=== PATIENT | female | born 1940 | race Native Hawaiian/Other Pacific Islander ===

== ENCOUNTER 2017-02-10 15:08 | Observation (INO) | payer OTHER ==
[~2017-02-10] VITALS: Ht 154.9 cm; Wt 85.0 kg
[~2017-02-10 15:08] MED LIST: AMLO5TAB PO; ARICEPT ODT5 MG PO; CETI10TA PO; CIMETIDINE400 MG PO; DICL1GEL2 TOP; FLUT0.05 NAS; GLIP10TA55 PO; HYDR10TA47 PO; LISI5TAB10 PO; METHIMAZOLE5 MG PO; METO100T37 PO; MIRALAX3350 N1 PO; NITRO-DUR0.4 MG/HR TD; PROAIR HFA IN; TRAM50TA PO; TRAMADL/APAP1 TAB PO; TRAVATAN Z0.004 % OP; XARELTO15 MG PO
[2017-02-10 17:33] LABS: PLATELET COUNT 196 K/uL (152-353)
[2017-02-10 17:42] LABS: POTASSIUM 3.6 mmol/L (3.6-5.2); SODIUM 136 mmol/L (136-145)
[2017-02-10 17:55] LABS: PARTIAL THROMBOPLASTIN TIME 22.8 SECONDS (24.5-33.6)
[2017-02-10 18:41] VITALS: BP 176/83; TEMP 98.4; Ht 154.9 cm; Wt 85.0 kg
[2017-02-10 20:00] VITALS: BP 143/74; TEMP 98.5
[2017-02-11 00:01] VITALS: BP 141/70; TEMP 99.5
[2017-02-11 03:54] LABS: PLATELET COUNT 216 K/uL (152-353)
[2017-02-11 04:00] VITALS: BP 132/52; TEMP 99.1
[2017-02-11 04:07] LABS: POTASSIUM 3.5 mmol/L (3.6-5.2)
[2017-02-11 08:00] VITALS: BP 128/68; TEMP 98.3
== END 2017-02-11 12:48 | disposition home or self-care (01) ==
LOC: MED/SURG 15:08
PROVIDERS: Family Medicine
DX: R07.89 Other chest pain (principal); I48.91 Unspecified atrial fibrillation; R00.2 Palpitations; R94.31 Abnormal electrocardiogram [ECG] [EKG]
CPT/HCPCS: 36415; 80053; 82550; 82948; 83735; 83880; 84443; 84484; 85027; 85610; 85730; 93005; 96372; 99220; G0378; G0379; J1650

== ENCOUNTER 2017-06-13 18:00 | Emergency (ER) | payer OTHER ==
[~2017-06-13] VITALS: Ht 154.9 cm; Wt 86.2 kg
[2017-06-13 19:04] LABS: PLATELET COUNT 209 K/uL (152-353)
[2017-06-13 20:35] VITALS: BP 164/65; TEMP 98.7
== END 2017-06-13 20:38 | disposition home or self-care (01) ==
LOC: ED 18:00
DX: L03.213 Periorbital cellulitis (principal); Z97.0 Presence of artificial eye
CPT/HCPCS: 36415; 85027; 96374; 99284; J1885

== ENCOUNTER 2017-09-06 12:09 | Inpatient (IN) | payer OTHER ==
[~2017-09-06] VITALS: Ht 152.4 cm; Wt 87.1 kg
[2017-09-06 13:45] VITALS: BP 187/92; TEMP 98.7; Ht 152.4 cm; Wt 87.1 kg
[2017-09-06 15:57] LABS: PLATELET COUNT 190 K/uL (152-353)
[2017-09-06 16:00] VITALS: BP 191/101; TEMP 98.6
[2017-09-06] MEDS ORDERED: COMBIGAN0.2 MG/0.5 OP (16:13)
[2017-09-06 17:33] VITALS: BP 109/79
[2017-09-06] MEDS ORDERED: LEVO-T50 MCG PO (17:49)
[2017-09-06 18:16] LABS: POTASSIUM 2.8 mmol/L (3.6-5.2)
[2017-09-06 20:00] VITALS: TEMP 98.2
[2017-09-07] VITALS: BP 162/85; TEMP 98.2
[2017-09-07 04:00] VITALS: BP 117/69; TEMP 99.1
[2017-09-07 06:09] LABS: PLATELET COUNT 205 K/uL (152-353)
[2017-09-07 06:24] LABS: POTASSIUM 2.7 mmol/L (3.6-5.2)
[2017-09-07 08:00] VITALS: BP 155/65; TEMP 98
[2017-09-07 11:50] VITALS: BP 124/53; TEMP 98
[2017-09-07 16:00] VITALS: BP 128/54; TEMP 98
[2017-09-07 20:00] VITALS: BP 152/70; TEMP 98.9
[2017-09-08] VITALS: BP 156/55; TEMP 99
[2017-09-08 04:00] VITALS: BP 170/64; TEMP 98.7
[2017-09-08 05:37] LABS: PLATELET COUNT 191 K/uL (152-353)
[2017-09-08 05:48] LABS: POTASSIUM 2.6 mmol/L (3.6-5.2)
[2017-09-08 08:00] VITALS: BP 162/72; TEMP 98.6
[2017-09-08 12:00] VITALS: BP 113/68; TEMP 98.8
[2017-09-08 16:00] VITALS: BP 177/88; TEMP 98.8
[2017-09-08 20:00] VITALS: BP 138/50; TEMP 98.6
[2017-09-09] VITALS: BP 133/64; TEMP 98.3
[2017-09-09 04:00] VITALS: BP 167/76; TEMP 97.7
[2017-09-09 07:35] LABS: PLATELET COUNT 181 K/uL (152-353)
[2017-09-09 08:02] LABS: POTASSIUM 2.9 mmol/L (3.6-5.2)
[2017-09-09 08:10] VITALS: BP 162/71; TEMP 98.2
[2017-09-09 12:08] VITALS: BP 165/62; TEMP 97.8
[2017-09-09 15:05] VITALS: BP 167/61; TEMP 97.6
[2017-09-09 20:00] VITALS: BP 165/76; TEMP 98.4
[2017-09-10] VITALS: BP 151/62; TEMP 98.5
[2017-09-10 04:02] VITALS: BP 139/52; TEMP 98.7
[2017-09-10 08:00] VITALS: BP 163/78; TEMP 98
[2017-09-10 08:07] LABS: PLATELET COUNT 208 K/uL (152-353)
[2017-09-10 12:00] VITALS: BP 154/73; TEMP 97.8
== END 2017-09-10 14:45 | disposition home or self-care (01) | DRG 603 ==
LOC: MED/SURG 12:09
PROVIDERS: ADMIT Family Medicine
PROC: 0H91XZZ Drainage of Face Skin, External Approach (ICD-10-PCS; principal; 2017-09-07)
DX: A46 Erysipelas (principal); I10 Essential (primary) hypertension; E11.9 Type 2 diabetes mellitus without complications; R11.2 Nausea with vomiting, unspecified; B95.61 Methicillin susceptible Staphylococcus aureus infection as the cause of diseases classified elsewhere
CPT/HCPCS: 36415; 80053; 80202; 81000; 82550; 82948; 83735; 83880; 84100; 84132; 85027; 87040; 87070; 87077; 87185; 87186; 87205; 93005; J1170; J2405; J3475; J3480; Q9963

== ENCOUNTER 2018-02-28 15:46 | Outpatient (CLI) | payer OTHER ==
[~2018-02-28 15:46] MED LIST changes: +COMBIGAN0.2 MG/0.5 OP; +LEVO-T50 MCG PO
== END 2018-02-28 22:27 | disposition home or self-care (01) ==
LOC: RAD 15:46
DX: J44.9 Chronic obstructive pulmonary disease, unspecified (principal)

== ENCOUNTER 2018-04-07 10:43 | Outpatient (CLI) | payer OTHER | END 2018-04-07 20:18 | disposition home or self-care (01) | LOC: LAB 10:43 | DX: A46 Erysipelas (principal) | CPT/HCPCS: 87070; 87077; 87185; 87186; 87205 ==

== ENCOUNTER 2018-04-24 09:10 | Outpatient (CLI) | payer OTHER | END 2018-04-24 19:20 | disposition home or self-care (01) | LOC: RESP 09:10 | DX: R06.02 Shortness of breath (principal) ==

== ENCOUNTER 2018-07-16 13:46 | Emergency (ER) | payer OTHER ==
[~2018-07-16] VITALS: Ht 154.9 cm; Wt 85.3 kg
[2018-07-16 13:50] VITALS: TEMP 98
[2018-07-16 16:03] VITALS: BP 159/72
== END 2018-07-16 16:12 | disposition home or self-care (01) ==
LOC: ED 13:46
DX: M79.672 Pain in left foot (principal)
CPT/HCPCS: 92977; 99283; J1020; J1885

== ENCOUNTER 2018-07-22 15:01 | Emergency (ER) | payer OTHER ==
[~2018-07-22] VITALS: Ht 154.9 cm; Wt 85.3 kg
[2018-07-22 18:06] LABS: PLATELET COUNT 195 K/uL (152-353)
[2018-07-22 18:26] LABS: POTASSIUM 3.8 mmol/L (3.6-5.2)
[2018-07-22 21:09] VITALS: BP 155/83; TEMP 99
== END 2018-07-22 21:15 | disposition home or self-care (01) ==
LOC: ED 15:01
PROVIDERS: Emergency Medicine
DX: L03.213 Periorbital cellulitis (principal)
CPT/HCPCS: 36415; 80053; 85027; 87040; 96365; 99284; J0696; Q9963

== ENCOUNTER 2018-08-02 07:53 | Emergency (ER) | payer OTHER ==
[~2018-08-02] VITALS: Ht 154.9 cm; Wt 81.6 kg
[2018-08-02 08:08] VITALS: TEMP 98.2
[2018-08-02 10:15] VITALS: BP 144/88
== END 2018-08-02 10:15 | disposition home or self-care (01) ==
LOC: ED 07:53
DX: S09.8XXA Other specified injuries of head, initial encounter (principal); Z87.81 Personal history of (healed) traumatic fracture; V89.0XXA Person injured in unspecified motor-vehicle accident, nontraffic, initial encounter; Y92.89 Other specified places as the place of occurrence of the external cause
CPT/HCPCS: 99283

== ENCOUNTER 2018-08-13 07:01 | Outpatient (CLI) | payer OTHER ==
[2018-08-13] MEDS ORDERED: HYDROCODONE BIT1 TAB PO (11:09)
[2018-08-13] MEDS ORDERED: ONDA2INJ2 IV (11:10)
[2018-08-13] MEDS ORDERED: HYDR10TA10 PO (11:11)
[2018-08-13] MEDS ORDERED: LISI10TA11 PO (11:12)
[2018-08-13] MEDS ORDERED: ASA LOW DOSE81 MG PO (11:12)
[2018-08-13] MEDS ORDERED: GLIP10TA55 PO (11:13)
[2018-08-13] MEDS ORDERED: AMLODIPINE BESYLATE PO (11:14)
[2018-08-13] MEDS ORDERED: CLINDAMYCIN HY300 MG PO (11:14)
[2018-08-13] MEDS ORDERED: METH5TAB6 PO (11:15)
[2018-08-13] MEDS ORDERED: XARELTO15 MG PO (11:16)
[2018-08-13] MEDS ORDERED: UNITH DIRECT50 MCG PO (11:17)
[2018-08-13] MEDS ORDERED: NITR0.4S2 SL (17:56)
[2018-08-13] MEDS ORDERED: DONE5TAB PO (18:00)
== END 2018-08-13 07:05 | disposition short-term general hospital (02) ==
LOC: AMB 07:01
DX: R06.02 Shortness of breath (principal); R07.89 Other chest pain
CPT/HCPCS: A0425; A0427

== ENCOUNTER 2018-08-13 07:09 | Inpatient (IN) | payer OTHER ==
[2018-08-13] VITALS (11 sets, daily range): BP systolic 108–157; BP diastolic 82–110; TEMP 97.4–98.1; Ht 154.9 cm; Wt 85.8 kg
[~2018-08-13] VITALS: Ht 154.9 cm; Wt 85.8 kg
[2018-08-13 08:24] LABS: PLATELET COUNT 179 K/uL (152-353)
[2018-08-13 08:37] LABS: POTASSIUM 4.5 mmol/L (3.6-5.2); SODIUM 136 mmol/L (136-145)
[2018-08-13] MEDS ORDERED: HYDROCODONE BIT1 TAB PO (11:09)
[2018-08-13] MEDS ORDERED: ONDA2INJ2 IV (11:10)
[2018-08-13] MEDS ORDERED: HYDR10TA10 PO (11:11)
[2018-08-13] MEDS ORDERED: ASA LOW DOSE81 MG PO (11:12)
[2018-08-13] MEDS ORDERED: LISI10TA11 PO (11:12)
[2018-08-13] MEDS ORDERED: GLIP10TA55 PO (11:13)
[2018-08-13] MEDS ORDERED: AMLODIPINE BESYLATE PO (11:14)
[2018-08-13] MEDS ORDERED: CLINDAMYCIN HY300 MG PO (11:14)
[2018-08-13] MEDS ORDERED: METH5TAB6 PO (11:15)
[2018-08-13] MEDS ORDERED: XARELTO15 MG PO (11:16)
[2018-08-13] MEDS ORDERED: UNITH DIRECT50 MCG PO (11:17)
[2018-08-13] MEDS ORDERED: NITR0.4S2 SL (17:56)
[2018-08-13] MEDS ORDERED: DONE5TAB PO (18:00)
[2018-08-14] VITALS: BP 116/82; TEMP 97.8
[2018-08-14 03:58] VITALS: BP 120/80; TEMP 98.1
[2018-08-14 08:00] VITALS: BP 151/85; TEMP 97.3
[2018-08-14 08:31] LABS: POTASSIUM 3.8 mmol/L (3.6-5.2)
[2018-08-14 09:53] LABS: PLATELET COUNT 178 K/uL (152-353)
[2018-08-14 12:00] VITALS: BP 137/91; TEMP 97.6
[2018-08-14 16:00] VITALS: BP 119/76; TEMP 97.8
[2018-08-14 20:08] VITALS: BP 112/73; TEMP 98.8
[2018-08-15 00:03] VITALS: BP 121/69; TEMP 97.8
[2018-08-15 04:00] VITALS: BP 152/81; TEMP 97.8
[2018-08-15 05:46] LABS: PLATELET COUNT 169 K/uL (152-353)
[2018-08-15 07:02] LABS: POTASSIUM 3.4 mmol/L (3.6-5.2)
[2018-08-15 08:00] VITALS: BP 135/77; TEMP 97.9
[2018-08-15 12:00] VITALS: BP 135/62; TEMP 98.2
[2018-08-15 16:00] VITALS: BP 142/66; TEMP 97.8
[2018-08-15 19:36] VITALS: BP 131/71; TEMP 98.7
[2018-08-16 00:18] VITALS: BP 122/71; TEMP 98.8
[2018-08-16 04:00] VITALS: BP 146/66; TEMP 98.8
[2018-08-16 05:56] LABS: PLATELET COUNT 178 K/uL (152-353)
[2018-08-16 06:20] LABS: POTASSIUM 3.6 mmol/L (3.6-5.2)
[2018-08-16 08:00] VITALS: BP 146/85; TEMP 97.5
[2018-08-16] MEDS ORDERED: CARDIZEM LA360 M1 PO (09:29)
[2018-08-16] MEDS ORDERED: ISOS30TA17 PO (09:29)
== END 2018-08-16 10:00 | disposition home or self-care (01) | DRG 310 ==
LOC: ED 07:09 → MED/SURG 11:50
PROVIDERS: Family Medicine; ADMIT Family Medicine
DX: I48.0 Paroxysmal atrial fibrillation (principal); R07.89 Other chest pain; I45.2 Bifascicular block; I50.9 Heart failure, unspecified; E11.9 Type 2 diabetes mellitus without complications; G89.29 Other chronic pain; F03.90 Unspecified dementia, unspecified severity, without behavioral disturbance, psychotic disturbance, mood disturbance, and anxiety; I11.0 Hypertensive heart disease with heart failure; Z79.01 Long term (current) use of anticoagulants; E78.49 Other hyperlipidemia
CPT/HCPCS: 36415; 80048; 80053; 80162; 81000; 82550; 82553; 83735; 83880; 84100; 84484; 85027; 85379; 93005; 93306; 94640; 94664; 94760; 99283; J1160; J1650; J1815; J1940; J3490

== ENCOUNTER 2018-09-12 13:39 | Outpatient (CLI) | payer OTHER ==
[~2018-09-12 13:39] MED LIST changes: +AMLODIPINE BESYLATE PO; +ASA LOW DOSE81 MG PO; +CARDIZEM LA360 M1 PO; +CLINDAMYCIN HY300 MG PO; +DONE5TAB PO; +HYDR10TA10 PO; +HYDROCODONE BIT1 TAB PO; +ISOS30TA17 PO; +LISI10TA11 PO; +METH5TAB6 PO; +NITR0.4S2 SL; +ONDA2INJ2 IV; +UNITH DIRECT50 MCG PO
[2018-09-12 14:32] LABS: POTASSIUM 3.5 mmol/L (3.6-5.2); SODIUM 139 mmol/L (136-145)
[2018-09-12 14:34] LABS: PLATELET COUNT 192 K/uL (152-353)
== END 2018-09-12 21:10 | disposition home or self-care (01) ==
LOC: LABW 13:39
PROVIDERS: Family Medicine
DX: R06.02 Shortness of breath (principal)
CPT/HCPCS: 36415; 80053; 82550; 83880; 84484; 85027

== ENCOUNTER 2018-09-27 12:29 | Inpatient (IN) | payer OTHER ==
[~2018-09-27] VITALS: Ht 154.9 cm; Wt 89.0 kg
[2018-09-27 12:29] VITALS: BP 156/126; TEMP 98
[2018-09-27 13:20] LABS: POTASSIUM 3.7 mmol/L (3.6-5.2); SODIUM 137 mmol/L (136-145)
[2018-09-27 13:47] LABS: PLATELET COUNT 171 K/uL (152-353)
[2018-09-27 18:22] VITALS: BP 150/89; TEMP 97.5; Ht 154.9 cm; Wt 89.0 kg
[2018-09-27 20:00] VITALS: BP 150/69; TEMP 97.6
[2018-09-27 23:00] VITALS: BP 148/75
[2018-09-28] VITALS (25 sets, daily range): BP systolic 110–145; BP diastolic 47–84; TEMP 97.8–98.6
[2018-09-28 05:15] LABS: PLATELET COUNT 157 K/uL (152-353)
[2018-09-28] MEDS ORDERED: DIGOXIN125 MCG PO (09:17)
[2018-09-28] MEDS ORDERED: ONDA4TAB3 PO (09:18)
[2018-09-28] MEDS ORDERED: TRIAMCIN MT (09:19)
[2018-09-28] MEDS ORDERED: ORA MT (09:19)
[2018-09-28] MEDS ORDERED: HYDR10TA10 PO (09:20)
[2018-09-28] MEDS ORDERED: GLIP10TA55 PO (09:21)
[2018-09-28] MEDS ORDERED: TRAVATAN Z0.004 % OTIC (09:22)
[2018-09-28] MEDS ORDERED: COMBIGAN0.2 MG/0.5 OTIC (09:22)
[2018-09-28] MEDS ORDERED: AMLODIPINE BESYLATE PO (09:23)
[2018-09-29] VITALS (14 sets, daily range): BP systolic 107–130; BP diastolic 56–82; TEMP 97.3–98
[2018-09-29 06:25] LABS: PLATELET COUNT 158 K/uL (152-353)
[2018-09-29 06:46] LABS: POTASSIUM 3.3 mmol/L (3.6-5.2)
[2018-09-30] VITALS: BP 109/58; TEMP 97.6
[2018-09-30 04:00] VITALS: BP 113/70; TEMP 97.7
[2018-09-30 05:57] LABS: PLATELET COUNT 157 K/uL (152-353)
[2018-09-30 06:10] LABS: POTASSIUM 3.4 mmol/L (3.6-5.2)
[2018-09-30 08:30] VITALS: BP 132/78; TEMP 98.1
[2018-09-30 12:00] VITALS: BP 129/74; TEMP 97.7
[2018-09-30 16:00] VITALS: BP 115/68; TEMP 97.6
[2018-09-30 20:00] VITALS: BP 124/69; TEMP 98
[2018-10-01] VITALS: BP 121/66; TEMP 98.3
[2018-10-01 04:00] VITALS: BP 126/61; TEMP 98.4
[2018-10-01 05:19] LABS: PLATELET COUNT 170 K/uL (152-353)
[2018-10-01 05:43] LABS: POTASSIUM 3.6 mmol/L (3.6-5.2)
[2018-10-01 08:00] VITALS: BP 153/87; TEMP 97.6
[2018-10-01 12:00] VITALS: BP 135/59; TEMP 98
[2018-10-01 16:00] VITALS: BP 115/69; TEMP 97.7
[2018-10-01 19:59] VITALS: BP 152/88; TEMP 97.6
[2018-10-02] VITALS: BP 105/58; TEMP 98.1
[2018-10-02 04:00] VITALS: BP 115/62; TEMP 98
[2018-10-02 05:47] LABS: PLATELET COUNT 164 K/uL (152-353)
[2018-10-02 06:19] LABS: POTASSIUM 3.7 mmol/L (3.6-5.2)
[2018-10-02 08:00] VITALS: BP 109/62; TEMP 97.4
[2018-10-02] MEDS ORDERED: 904272561 PO (09:36)
[2018-10-02] MEDS ORDERED: FURO20TA67 PO (09:38)
== END 2018-10-02 10:50 | disposition home or self-care (01) | DRG 309 ==
LOC: ED 12:29 → ICU 16:40 → MED/SURG 16:40 → ICU 17:41 → UNDODEPER 09-28 18:19 → MED/SURG 09-29 11:10
PROVIDERS: ADMIT Emergency Medicine
DX: I48.0 Paroxysmal atrial fibrillation (principal); L03.213 Periorbital cellulitis; I50.9 Heart failure, unspecified; I51.7 Cardiomegaly; R53.1 Weakness; E78.49 Other hyperlipidemia; I10 Essential (primary) hypertension; E11.9 Type 2 diabetes mellitus without complications; E87.6 Hypokalemia; F03.90 Unspecified dementia, unspecified severity, without behavioral disturbance, psychotic disturbance, mood disturbance, and anxiety; E03.8 Other specified hypothyroidism
CPT/HCPCS: 36415; 80053; 82550; 82553; 83735; 83880; 84439; 84443; 84481; 84484; 85027; 93005; 94760; 96374; 99284; J1940; J2405; J3475; J3490

== ENCOUNTER 2018-10-26 16:17 | Emergency (ER) | payer OTHER ==
[~2018-10-26] VITALS: Ht 154.9 cm; Wt 88.9 kg
[~2018-10-26 16:17] MED LIST changes: +904272561 PO; +COMBIGAN0.2 MG/0.5 OTIC; +DIGOXIN125 MCG PO; +FURO20TA67 PO; +ONDA4TAB3 PO; +ORA MT; +TRAVATAN Z0.004 % OTIC; +TRIAMCIN MT
[2018-10-26 18:30] LABS: PLATELET COUNT 175 K/uL (152-353)
[2018-10-26 18:36] LABS: POTASSIUM 3.4 mmol/L (3.6-5.2); SODIUM 138 mmol/L (136-145)
[2018-10-26 20:17] VITALS: BP 189/91; TEMP 98.5
== END 2018-10-26 20:29 | disposition home or self-care (01) ==
LOC: ED 16:17
PROVIDERS: Emergency Medicine
DX: I48.91 Unspecified atrial fibrillation (principal); R06.02 Shortness of breath
CPT/HCPCS: 36415; 80053; 80162; 82550; 82553; 83735; 83880; 84484; 85027; 93005; 96360; 99284

== ENCOUNTER 2018-12-09 19:56 | Emergency (ER) | payer OTHER ==
[~2018-12-09] VITALS: Ht 154.9 cm; Wt 88.9 kg
[2018-12-09 20:05] VITALS: TEMP 98.1
[2018-12-09 20:48] LABS: PLATELET COUNT 167 K/uL (152-353)
[2018-12-09 21:03] LABS: POTASSIUM 3.3 mmol/L (3.6-5.2); SODIUM 139 mmol/L (136-145)
[2018-12-09 21:52] VITALS: BP 163/97
== END 2018-12-09 21:55 | disposition home or self-care (01) ==
LOC: ED 19:56
PROVIDERS: Family Medicine
DX: R06.02 Shortness of breath (principal); R54 Age-related physical debility
CPT/HCPCS: 36415; 80053; 82550; 82553; 83880; 84443; 84484; 85027; 85379; 93005; 99283

== ENCOUNTER 2019-01-30 16:40 | Emergency (ER) | payer OTHER ==
[~2019-01-30] VITALS: Ht 154.9 cm; Wt 81.6 kg
[2019-01-30 17:30] LABS: PLATELET COUNT 145 K/uL (152-353)
[2019-01-30 17:39] LABS: POTASSIUM 3.4 mmol/L (3.6-5.2); SODIUM 139 mmol/L (136-145)
[2019-01-30 17:42] LABS: PARTIAL THROMBOPLASTIN TIME 24.1 SECONDS (24.5-33.6)
[2019-01-31] VITALS: BP 149/86; TEMP 97.9
== END 2019-01-31 | disposition home or self-care (01) ==
LOC: ED 16:40
PROVIDERS: Family Medicine
DX: I48.2 Chronic atrial fibrillation (principal); Z98.890 Other specified postprocedural states
CPT/HCPCS: 80053; 81000; 82550; 84484; 85027; 85379; 85610; 85730; 93005; 96374; 99284; J2060; Q9963

== ENCOUNTER 2019-05-28 08:30 | Emergency (ER) | payer OTHER ==
[~2019-05-28] VITALS: Ht 154.9 cm; Wt 73.0 kg
[~2019-05-28 08:30] MED LIST changes: +COMBIGAN0.2 MG/0.5 OPTH; -COMBIGAN0.2 MG/0.5 OTIC
[2019-05-28 09:22] LABS: PLATELET COUNT 128 K/uL (152-353)
[2019-05-28 09:25] LABS: POTASSIUM 3.4 mmol/L (3.6-5.2); SODIUM 140 mmol/L (136-145)
[2019-05-28] MEDS ORDERED: TAZTIA XT120 MG PO (12:44)
[2019-05-28] MEDS ORDERED: CLOP75TA2 PO (12:48)
[2019-05-28] MEDS ORDERED: FLONASE AL50 MCG/ACT NAS (12:48)
[2019-05-28] MEDS ORDERED: OMEP20CA PO (12:49)
[2019-05-28] MEDS ORDERED: METO50TA27 PO (12:49)
[2019-05-28] MEDS ORDERED: LUMIGAN0.01 % OPTH (12:50)
[2019-05-28 20:19] VITALS: TEMP 98.4
[2019-05-28 20:22] VITALS: BP 162/91
== END 2019-05-28 20:33 | disposition short-term general hospital (02) ==
LOC: ED 08:30
PROVIDERS: Emergency Medicine
DX: I48.91 Unspecified atrial fibrillation (principal)
CPT/HCPCS: 80053; 80162; 81000; 82550; 83690; 83735; 83880; 84484; 85027; 93005; 96365; 96375; 96376; 99284; J2405; J3490

== ENCOUNTER 2019-06-05 15:30 | Inpatient (IN) | payer OTHER ==
[~2019-06-05] VITALS: Ht 157.5 cm; Wt 74.1 kg
[~2019-06-05 15:30] MED LIST changes: +CLOP75TA2 PO; +FLONASE AL50 MCG/ACT NAS; +LUMIGAN0.01 % OPTH; +METO50TA27 PO; +OMEP20CA PO; +TAZTIA XT120 MG PO
[2019-06-05 16:37] VITALS: BP 181/92; TEMP 97.8; Ht 157.5 cm; Wt 74.1 kg
[2019-06-05] MEDS ORDERED: LIPITOR10 MG PO (17:09)
[2019-06-05] MEDS ORDERED: CLOP75TA2 PO (17:09)
[2019-06-05] MEDS ORDERED: LISI5TAB10 PO (17:10)
[2019-06-05] MEDS ORDERED: TIROSINT50 MCG PO (17:11)
[2019-06-05] MEDS ORDERED: ISOS10TA14 PO (17:11)
[2019-06-05] MEDS ORDERED: CYCLOBENZAPRINE10 MG PO (17:12)
[2019-06-05] MEDS ORDERED: DONEPEZIL HYDRO10 MG PO (17:12)
[2019-06-05] MEDS ORDERED: GLIP10TA55 PO (17:28)
[2019-06-05 19:22] LABS: PLATELET COUNT 163 K/uL (152-353)
[2019-06-05 19:40] LABS: POTASSIUM 2.7 mmol/L (3.6-5.2)
[2019-06-05 20:00] VITALS: BP 130/59; TEMP 98.7
[2019-06-06 08:27] VITALS: BP 131/84; TEMP 98.5
[2019-06-06 20:00] VITALS: BP 152/89; TEMP 98.6
[2019-06-07 08:00] VITALS: BP 166/85; TEMP 98.2
[2019-06-07 08:07] LABS: POTASSIUM 3.6 mmol/L (3.6-5.2)
[2019-06-07 20:00] VITALS: BP 162/43; TEMP 98.1
[2019-06-08 08:00] VITALS: BP 149/88; TEMP 98.7
[2019-06-08 20:00] VITALS: BP 185/92; TEMP 97.6
[2019-06-09] MEDS ORDERED: COMBIGAN0.2 MG/0.5 OPTH (03:17)
[2019-06-09] MEDS ORDERED: LUMIGAN0.01 % OPTH (03:19)
[2019-06-09 19:48] VITALS: BP 155/92; TEMP 98.7
[2019-06-10 08:00] VITALS: BP 126/69; TEMP 98.2
[2019-06-10 20:25] VITALS: BP 151/83; TEMP 99.2
[2019-06-11 08:00] VITALS: BP 113/44; TEMP 97.9
[2019-06-11 20:00] VITALS: BP 155/87; TEMP 98.1
[2019-06-12 08:00] VITALS: BP 126/84; TEMP 98.5
[2019-06-12 20:00] VITALS: BP 149/87; TEMP 98.4
[2019-06-13 08:06] VITALS: BP 170/95; TEMP 98.3
[2019-06-13 20:00] VITALS: BP 144/67; TEMP 97.8
[2019-06-14 08:00] VITALS: BP 149/66; TEMP 98.3
[2019-06-14 20:00] VITALS: BP 141/78; TEMP 97.7
[2019-06-15 08:00] VITALS: BP 131/65; TEMP 98.2
[2019-06-15 20:00] VITALS: BP 158/93; TEMP 98.4
[2019-06-16 08:00] VITALS: BP 112/64; TEMP 98.9
[2019-06-16 20:00] VITALS: BP 149/86; TEMP 98.4
[2019-06-17 08:00] VITALS: BP 149/75; TEMP 98.8
[2019-06-17 20:00] VITALS: BP 161/83; TEMP 98.8
[2019-06-18 08:00] VITALS: BP 152/90; TEMP 98.7
== END 2019-06-18 17:55 | disposition home or self-care (01) | DRG 57 ==
LOC: MED/SURG 15:30
PROVIDERS: ADMIT Family Medicine
DX: I69.351 Hemiplegia and hemiparesis following cerebral infarction affecting right dominant side (principal); R62.7 Adult failure to thrive; I69.391 Dysphagia following cerebral infarction; R13.19 Other dysphagia; E87.6 Hypokalemia; I48.91 Unspecified atrial fibrillation; E11.42 Type 2 diabetes mellitus with diabetic polyneuropathy; F03.90 Unspecified dementia, unspecified severity, without behavioral disturbance, psychotic disturbance, mood disturbance, and anxiety
CPT/HCPCS: 36415; 80048; 80053; 81000; 85007; 85027; 85610; 87081; 94664; 94760; J1815; Q0177

== ENCOUNTER 2019-09-06 12:15 | Outpatient (CLI) | payer OTHER ==
[~2019-09-06 12:15] MED LIST changes: +CYCLOBENZAPRINE10 MG PO; +DONEPEZIL HYDRO10 MG PO; +ISOS10TA14 PO; +LIPITOR10 MG PO; +TIROSINT50 MCG PO
== END 2019-09-06 19:02 | disposition home or self-care (01) ==
LOC: RAD 12:15
DX: R06.02 Shortness of breath (principal)

== ENCOUNTER 2019-10-05 11:26 | Emergency (ER) | payer OTHER ==
[~2019-10-05] VITALS: Ht 157.5 cm; Wt 73.9 kg
[2019-10-05 11:26] VITALS: TEMP 98.1
[2019-10-05 14:26] LABS: PLATELET COUNT 140 K/uL (152-353)
[2019-10-05 14:37] LABS: POTASSIUM 2.6 mmol/L (3.6-5.2)
[2019-10-05 14:46] LABS: PARTIAL THROMBOPLASTIN TIME 28.5 SECONDS (24.5-33.6)
[2019-10-05 17:30] VITALS: BP 134/65
== END 2019-10-05 18:00 | disposition home or self-care (01) ==
LOC: ED 11:30
PROVIDERS: Family Medicine
DX: S70.02XA Contusion of left hip, initial encounter (principal); S70.01XA Contusion of right hip, initial encounter; E87.6 Hypokalemia; W18.09XA Striking against other object with subsequent fall, initial encounter; Y92.89 Other specified places as the place of occurrence of the external cause
CPT/HCPCS: 80053; 81000; 85027; 85610; 85730; 96374; 99284; J1885

== ENCOUNTER 2020-01-01 08:37 | Outpatient (CLI) | payer OTHER | END 2020-01-01 20:35 | disposition home or self-care (01) | LOC: LAB 08:37 | DX: Z20.828 Contact with and (suspected) exposure to other viral communicable diseases (principal) | CPT/HCPCS: 87635; G2023; U00003 ==

== ENCOUNTER 2020-02-03 15:32 | Inpatient (IN) | payer OTHER ==
[~2020-02-03] VITALS: Ht 162.6 cm; Wt 67.8 kg
[2020-02-03 15:32] VITALS: BP 157/66; TEMP 98.4
[2020-02-03 16:05] LABS: PLATELET COUNT 163 K/uL (152-353)
[2020-02-03 16:21] LABS: POTASSIUM 3.1 mmol/L (3.6-5.2); SODIUM 138 mmol/L (136-145)
[2020-02-03 16:25] LABS: PARTIAL THROMBOPLASTIN TIME 23.5 SECONDS (24.5-33.6)
[2020-02-03 16:30] VITALS: BP 167/84
[2020-02-03] MEDS ORDERED: CARTIA XT120 MG PO (17:01)
[2020-02-03] MEDS ORDERED: AMLODIPINE BESYLATE PO (17:01)
[2020-02-03 17:30] VITALS: BP 163/70
[2020-02-03 20:00] VITALS: BP 155/83; TEMP 98.9
[2020-02-03 23:51] VITALS: BP 156/83; TEMP 97.6
[2020-02-04 03:33] VITALS: BP 156/85; TEMP 98.1; Ht 162.6 cm; Wt 67.8 kg
[2020-02-04 04:00] VITALS: BP 154/80; TEMP 98.6
[2020-02-04 08:00] VITALS: BP 178/87; TEMP 98.3
[2020-02-04 09:39] LABS: POTASSIUM 3.4 mmol/L (3.6-5.2)
[2020-02-04 09:57] LABS: PLATELET COUNT 143 K/uL (152-353)
[2020-02-04 12:00] VITALS: BP 167/63; TEMP 98.5
[2020-02-04 16:00] VITALS: BP 120/89; TEMP 98.1
[2020-02-04 20:00] VITALS: BP 107/65; TEMP 98.1
[2020-02-05 00:11] VITALS: BP 117/69; TEMP 97.4
[2020-02-05 04:00] VITALS: BP 149/73; TEMP 97.8
[2020-02-05 05:44] LABS: PLATELET COUNT 142 K/uL (152-353)
[2020-02-05 06:01] LABS: POTASSIUM 4.3 mmol/L (3.6-5.2)
[2020-02-05 08:00] VITALS: BP 155/87; TEMP 97.7
[2020-02-05 12:00] VITALS: BP 163/93; TEMP 97.7
[2020-02-05 16:00] VITALS: BP 151/77; TEMP 97.9
[2020-02-05 20:00] VITALS: BP 163/68; TEMP 98.3
[2020-02-06] VITALS: BP 148/71; TEMP 98.6
[2020-02-06 03:54] VITALS: BP 137/69; TEMP 97.6
[2020-02-06 04:47] LABS: PLATELET COUNT 166 K/uL (152-353)
[2020-02-06 05:26] LABS: POTASSIUM 3.6 mmol/L (3.6-5.2)
[2020-02-06 08:00] VITALS: BP 145/77; TEMP 97.6
[2020-02-06] MEDS ORDERED: ASPIRIN325 M1 PO (10:48)
[2020-02-06 12:00] VITALS: BP 169/52; TEMP 97
[2020-02-06 16:00] VITALS: BP 114/96; TEMP 98.8
[2020-02-06 20:00] VITALS: BP 132/73; TEMP 98.7
== END 2020-02-07 01:15 | disposition home health service (06) | DRG 65 ==
LOC: ED 15:37 → MED/SURG 17:00
PROVIDERS: Internal Medicine Endocrinology, Diabetes & Metabolism; ADMIT Hospitalist
DX: I63.89 Other cerebral infarction (principal); M62.82 Rhabdomyolysis; I48.91 Unspecified atrial fibrillation; Z79.01 Long term (current) use of anticoagulants; E11.9 Type 2 diabetes mellitus without complications; F03.90 Unspecified dementia, unspecified severity, without behavioral disturbance, psychotic disturbance, mood disturbance, and anxiety; E03.8 Other specified hypothyroidism; K21.9 Gastro-esophageal reflux disease without esophagitis; R62.7 Adult failure to thrive; J44.9 Chronic obstructive pulmonary disease, unspecified; Z91.81 History of falling; E87.6 Hypokalemia; I11.0 Hypertensive heart disease with heart failure; I50.9 Heart failure, unspecified; Z86.73 Personal history of transient ischemic attack (TIA), and cerebral infarction without residual deficits
CPT/HCPCS: 36415; 51702; 80048; 80053; 80307; 80320; 81000; 82550; 82553; 83880; 84443; 84484; 85027; 85610; 85730; 93005; 96360; 96361; 99284; J1885; J2060